=== PATIENT | male | born 1970 | race American Indian/Alaskan Native ===

== ENCOUNTER 2018-11-27 10:48 | Emergency (ER) | payer SELFPAY ==
[2018-11-27 11:08] VITALS: BP 140/79
--- NOTE | 2018-11-27 12:54 | Emergency Department Report ---
ED Lower Extremity HPI - General Chief Complaint: Extremity Injury, Lower Stated Complaint: LT FOOT INJURY Time Seen by Provider: 11/27/18 12:15 Source: patient Mode of arrival: Ambulatory Limitations: No Limitations - History of Present Illness Initial Comments: 48-year-old male presents to the emergency room complaining of left foot pain after twisting his ankle on 11/17/2018. Patient states he was cutting grass at home when he stepped into a hole and twisted his foot. Patient reports that he hears so place ice and elevated. Patient states pain when he starts to walk but improves with walking. Patient reports that he feels stiff. Patient denies any swelling able to walk. Patient does admit to a history of a fracture to his left foot as a child. Patient reports he has taken ibuprofen which has helped. Patient states that he needs a note to be cleared for work. Patient does not have a primary care provider. Patient has no other past medical history is not take any pain medications or chronic medications on a daily basis. He has an allergy to iodine. Onset/Timin -: days(s) Injury: Foot: Left (twisted from stepping into a hole) Type of Injury: inversion, eversion Place: home Severity: mild Improves With: NSAID, rest Treatments Prior to Arrival: NSAIDS - Related Data Allergies Allergy/AdvReac Type Severity Reaction Status Date / Time iodine Allergy Shortness Verified 11/27/18 10:51 of Breath ED Review of Systems ROS: Stated complaint: LT FOOT INJURY Other details as noted in HPI Comment: All other systems reviewed and negative ED Past Medical Hx - Past Medical History Previous Medical History?: No - Surgical History Past Surgical History?: No - Social History Smoking Status: Never Smoker Substance Use Type: Alcohol ED Physical Exam - General Limitations: No Limitations General appearance: alert, in no apparent distress - Head Head exam: Present: atraumatic, normocephalic - Eye Eye exam: Present: normal appearance - ENT ENT exam: Present: mucous membranes moist - Neck Neck exam: Present: normal inspection, full ROM - Expanded Lower Extremity Exam Left Hip exam: Present: normal inspection Upper Leg exam: Present: normal inspection Knee exam: Present: normal inspection Lower Leg exam: Present: normal inspection Ankle exam: Present: normal inspection Foot/Toe exam: Present: full ROM, tenderness (arch). Absent: swelling, abrasion, laceration, ecchymosis, deformity, crepidus, erythema, amputation, puncture wound Neuro vascular tendon exam: Present: no vascular compromise Gait: Positive: observed and normal - Back Exam Back exam: Present: normal inspection - Neurological Exam Neurological exam: Present: alert, oriented X3, normal gait - Psychiatric Psychiatric exam: Present: normal affect, normal mood - Skin Skin exam: Present: warm, dry, intact, normal color. Absent: rash ED Course Vital Signs 11/27/18 11:05 Temperature 97.8 F Pulse Rate 86 Respiratory 16 Rate Blood Pressure 140/79 O2 Sat by Pulse 96 Oximetry ED Lower Extremity MDM - Radiology Data Radiology results: report reviewed Patient: BIGG VALDES MR#: [id number] 03 : 1970 Acct:[id number] Age/Sex: 48 / M ADM Date: 11/27/18 Loc: ED Attending Dr: Ordering Physician: FRANCES BECKWITH Date of Service: 11/27/18 Procedure(s): XR foot 2V LT Accession Number(s): [id number] cc: FRANCES BECKWITH Fluoro Time In Minutes: LEFT FOOT 2 VIEW(S) INDICATION / CLINICAL INFORMATION: left foot pain COMPARISON: None available. FINDINGS: BONES / JOINT(S): No acute fracture or subluxation. No significant arthritis. SOFT TISSUES: No definite focal soft tissue swelling. ADDITIONAL FINDINGS: None. Signer Name: Ilya Solo MD Signed: 11/27/2018 1:02 PM Workstation Name: [id number] Transcribed By: DT Dictated By: Alex Solo MD Electronically Authenticated By: Alex Solo MD Signed Date/Time: 11/27/18 1302 DD/ 1301 TD/TT: - Medical Decision Making 48-year-old male presents to the emergency room complaining of left foot pain after twisting his ankle on 11/17/2018. Patient states he was cutting grass at home when he stepped into a hole and twisted his foot. Patient reports that he hears so place ice and elevated. Patient states pain when he starts to walk but improves with walking. Patient reports that he feels stiff. Patient denies any swelling able to walk. Patient does admit to a history of a fracture to his left foot as a child. Patient reports he has taken ibuprofen which has helped. Patient states that he needs a note to be cleared for work. Patient does not have a primary care provider. Patient has no other past medical history is not take any pain medications or chronic medications on a daily basis. He has an allergy to iodine. X-ray of left foot has been ordered. X-ray results shows no abnormalities. Critical care attestation.: If time is entered above; I have spent that time in minutes in the direct care of this critically ill patient, excluding procedure time. ED Disposition Clinical Impression: Injury of foot, left Qualifiers: Encounter type: initial encounter Qualified Code(s): S99.922A - Unspecified injury of left foot, initial encounter Disposition: TO HOME OR SELFCARE Is pt being admited?: No Does the pt Need Aspirin: No Condition: Stable Instructions: Foot Sprain (ED) Additional Instructions: Continue with [id number] ibuprofen or Tylenol as needed for pain. Follow- up with the primary care provider if his symptoms persist or gets worse. Referrals: CARON PEÑA MD [Primary Care Provider] - 3-5 Days Forms: Work/School Release Form(ED)
--- NOTE | 2018-11-27 13:06 | XRay Report ---
LEFT FOOT 2 VIEW(S) INDICATION / CLINICAL INFORMATION: left foot pain COMPARISON: None available. FINDINGS: BONES / JOINT(S): No acute fracture or subluxation. No significant arthritis. SOFT TISSUES: No definite focal soft tissue swelling. ADDITIONAL FINDINGS: None. Signer Name: Ilya Solo MD Signed: 11/27/2018 1:02 PM Workstation Name: [id number]
== END 2018-11-27 13:49 | disposition home or self-care (01) ==
LOC: ED 10:48
DX: S99.922A Unspecified injury of left foot, initial encounter (principal); X50.0XXA Overexertion from strenuous movement or load, initial encounter; Y93.89 Activity, other specified; Y92.89 Other specified places as the place of occurrence of the external cause; Y99.8 Other external cause status
CPT/HCPCS: 99283

== ENCOUNTER 2021-08-24 15:46 | Emergency (ER) | payer BC ==
[2021-08-24 18:51] VITALS: BP 130/81
[2021-08-24 19:54] LABS: Basophils % (Auto) 0.7 % (0.0-1.8); Eosinophils # (Auto) 0.2 K/mm3 (0.0-0.4); Eosinophils % (Auto) 3.1 % (0.0-4.3); Hematocrit 50.3 % (35.5-45.6); Hemoglobin 16.6 gm/dl (11.8-15.2); Lymphocytes # (Auto) 2.4 K/mm3 (1.2-5.4); Lymphocytes % (Auto) 47.5 % (13.4-35.0); Mean Corpuscular HGB Conc 33 % (32-34); Mean Corpuscular Volume 98 fl (84-94); Monocytes # (Auto) 0.4 K/mm3 (0.0-0.8); Monocytes % (Auto) 7.9 % (0.0-7.3); Platelet Count 211 K/mm3 (140-440); Red Blood Count 5.12 M/mm3 (3.65-5.03); Red Cell Distribution Width 12.9 % (13.2-15.2)
[2021-08-24 20:06] LABS: Alanine Aminotransferase 13 units/L (7-56); Albumin 4.8 g/dL (3.9-5); BUN/Creatinine Ratio 9; Blood Urea Nitrogen 7 mg/dL (9-20); Calcium 9.7 mg/dL (8.4-10.2); Hemolysis Index 6
[2021-08-24] MEDS ORDERED: MORPHINE 4 MG/1 ML INJ IV ONE (23:24)
[2021-08-24] MEDS ORDERED: ALUM-MAG HYDROXIDE-SIMETHICONE 200-200-20MG/5ML ORAL LIQD 30 ML PO ONE (23:24)
[2021-08-24] MEDS ORDERED: LIDOCAINE VISCOUS 2% 15 ML ORAL LIQD PO ONE (23:24)
[2021-08-24] MEDS ORDERED: FAMOTIDINE 20 MG/2 ML INJ IV ONE (23:24)
[2021-08-24] MEDS ORDERED: ONDANSETRON 4 MG/2 ML INJ IV ONE (23:24)
[2021-08-24] MEDS ORDERED: SODIUM CHLORIDE 0.9% 1000 ML 1,000 ML IV ONE (23:25)
[2021-08-24 23:46] LABS: Bilirubin,Urine NEG (Negative); Blood,Urine SM (Negative); Color,Urine Yellow (Yellow); Mucus,Urine 3+ /HPF; Protein,Urine <15 mg/dL mg/dL (Negative)
--- NOTE | 2021-08-25 02:28 | Emergency Department Report ---
ED Abdominal Pain HPI - General Chief Complaint: Abdominal Pain Stated Complaint: ABDOMINAL LORENA Source: patient Mode of arrival: Ambulatory Limitations: No Limitations - History of Present Illness Initial Comments: Patient is a 51-year-old -[place] male with no past medical history presents to the ED with complaint of acute onset persistent epigastric pain and nausea and vomiting for the last 1 week. Patient states that in the last 3 days he has not been able to keep anything down because of intractable nausea and vomiting despite taking medication that were previously prescribed for him including Carafate and Zofran 4 mg ODT sublingual tablets. Patient states that he has an appointment with a GI physician for endoscopy on September 13, 2021 but is unable to wait until that time because of his persistent pain. Patient also admits to having drank alcohol about a week ago at a green party and that that it was after the green party that the symptoms started flaring up. Patient denies dizziness, syncope, hematemesis, hemoptysis, hematochezia, diarrhea, chest pain or shortne ss of breath, fever, chills, cough, sore throat, headache, dysuria, urinary frequency and urgency and hematuria or traumatic injury. MD Complaint: abdominal pain, other (Nausea and vomiting) -: Sudden, week(s) (1) Location: epigastric Radiation: none Migration to: no migration Severity scale (0 -10): 8 Quality: aching, sharp Consistency: intermittent Improves With: nothing Worsens With: eating, vomiting - Related Data Previous Rx's Medication Instructions Recorded Last Taken Type Dicyclomine [Bentyl] 20 mg PO Q6H #30 tablet 08/25/21 Unknown Rx Famotidine [Pepcid] 20 mg PO BID #60 tablet 08/25/21 Unknown Rx Omeprazole 40 mg PO DAILY #60 cap 08/25/21 Unknown Rx Promethazine [Phenergan] 25 mg PO Q6HR PRN #30 tab 08/25/21 Unknown Rx Allergies Allergy/AdvReac Type Severity Reaction Status Date / Time iodine Allergy Shortness Verified 08/24/21 18:48 of Breath ED Review of Systems ROS: Stated complaint: ABDOMINAL LORENA Other details as noted in HPI Constitutional: denies: chills, fever Eyes: denies: eye pain, eye discharge, vision change ENT: denies: ear pain, throat pain Respiratory: denies: cough, shortness of breath, wheezing Cardiovascular: denies: chest pain, palpitations Endocrine: no symptoms reported Gastrointestinal: abdominal pain (Epigastric pain), nausea, vomiting. denies: diarrhea Genitourinary: denies: urgency, dysuria Musculoskeletal: denies: back pain, joint swelling, arthralgia Skin: denies: rash, lesions Neurological: denies: headache, weakness, paresthesias Psychiatric: denies: anxiety, depression Hematological/Lymphatic: denies: easy bleeding, easy bruising ED Past Medical Hx - Past Medical History Previous Medical History?: No - Surgical History Past Surgical History?: No - Social History Smoking Status: Never Smoker Substance Use Type: Alcohol - Medications Home Medications: Home Medications Medication Instructions Recorded Confirmed Last Taken Type Dicyclomine [Bentyl] 20 mg PO Q6H #30 tablet 08/25/21 Unknown Rx Famotidine [Pepcid] 20 mg PO BID #60 tablet 08/25/21 Unknown Rx Omeprazole 40 mg PO DAILY #60 cap 08/25/21 Unknown Rx Promethazine [Phenergan] 25 mg PO Q6HR PRN #30 tab 08/25/21 Unknown Rx ED Physical Exam - General Limitations: No Limitations General appearance: alert, in no apparent distress - Head Head exam: Present: atraumatic, normocephalic, normal inspection - Eye Eye exam: Present: normal appearance, PERRL, EOMI Pupils: Present: normal accommodation - ENT ENT exam: Present: normal exam, normal orophraynx, mucous membranes moist, TM's normal bilaterally, normal external ear exam - Neck Neck exam: Present: normal inspection, full ROM. Absent: tenderness - Respiratory Respiratory exam: Present: normal lung sounds bilaterally. Absent: respiratory distress, wheezes, rales, stridor, chest wall tenderness, accessory muscle use, decreased breath sounds, other - Cardiovascular Cardiovascular Exam: Present: regular rate, normal rhythm, normal heart sounds. Absent: systolic murmur, diastolic murmur, rubs, gallop - GI/Abdominal GI/Abdominal exam: Present: soft, tenderness (Palpable mild epigastric tenderness), normal bowel sounds. Absent: guarding, rebound, rigid, hyperactive bowel sounds, hypoactive bowel sounds - Extremities Exam Extremities exam: Present: normal inspection, full ROM, normal capillary refill. Absent: tenderness, pedal edema, joint swelling - Back Exam Back exam: Present: normal inspection, full ROM. Absent: tenderness, CVA tenderness (R), CVA tenderness (L), muscle spasm - Neurological Exam Neurological exam: Present: alert, oriented X3, CN II-XII intact, normal gait, reflexes normal - Psychiatric Psychiatric exam: Present: normal affect, normal mood - Skin Skin exam: Present: warm, dry, intact, normal color. Absent: rash ED Course Vital Signs 08/24/21 18:50 Pulse Rate 87 Respiratory 18 Rate Blood Pressure 130/81 [Left] O2 Sat by Pulse 100 Oximetry ED Medical Decision Making - Lab Data Result diagrams: 08/24/21 19:08 08/24/21 19:08 - Medical Decision Making This is a 51-year-old -[place] male with no past medical history presents to the ED with complaint of acute onset persistent epigastric pain and nausea and vomiting for the last 1 week. Patient states that in the last 3 days he has not been able to keep anything down because of intractable nausea and vomiting despite taking medication that were previously prescribed for him including Carafate and Zofran 4 mg ODT sublingual tablets. Patient states that he has an appointment with a GI physician for endoscopy on September 13, 2021 but is unable to wait until that time because of his persistent pain. Patient also admits to having drank alcohol about a week ago at a green party and that that it was after the green party that the symptoms started flaring up. In the ED, patient is alert and oriented x3 and is not in any distress. Patient was treated for nausea and vomiting with antiemetics, also given antacids and pain medications and also received normal saline 1 L IV bolus x1. Lab test results were reviewed and are all nonactionable except for mild hyponatremia 132 mmol/L and hypokalemia of 3.4 mmol/L. On reevaluation, patient's pain resolved and nausea and vomiting also resolved. Patient passed oral fluid challenge in the ED. Patient was discharged home on medications and advised to maintain a clear l iquid diet for 12 to 24 hours, take medication as needed for nausea and vomiting, antacids and antispasmodics. Patient was advised to return to the ED immediately if symptoms get worse. Patient was otherwise advised to follow-up with the GI physician for endoscopy as previously scheduled. - Differential Diagnosis GERD; gastritis; gastroenteritis; dehydration; Critical care attestation.: If time is entered above; I have spent that time in minutes in the direct care of this critically ill patient, excluding procedure time. ED Disposition Clinical Impression: Nausea and vomiting in adult patient, Acute epigastric pain GERD (gastroesophageal reflux disease) Qualifiers: Esophagitis presence: esophagitis presence not specified Qualified Code(s): K21.9 - Gastro-esophageal reflux disease without esophagitis Disposition: HOME / SELF CARE / HOMELESS Is pt being admited?: No Does the pt Need Aspirin: No Condition: Stable Instructions: Heartburn, [id number], Abdominal Pain, Adult, [id number], Nausea and Vomiting, Adult, [id number], Gastroesophageal Reflux Disease, Adult, [id number] Additional Instructions: All lab test results were reviewed and are all nonactionable. Based on your history and physical exam findings as well as lab test results, your symptoms are likely due to GERD complications. Therefore take medication as advised, drink plenty of fluids and ensure that you follow-up with a GI physician as previously scheduled for endoscopy. Return to the ED immediately if symptoms get worse Prescriptions: Dicyclomine [Bentyl] 20 mg PO Q6H #30 tablet Omeprazole 40 mg PO DAILY #60 cap Famotidine [Pepcid] 20 mg PO BID #60 tablet Promethazine [Phenergan] 25 mg PO Q6HR PRN #30 tab PRN Reason: Nausea Referrals: [facility] [Provider Group] - 3-5 Days Forms: Work/School Release Form(ED) Time of Disposition: 02:24 Print Language: MONTENEGRIN
== END 2021-08-25 02:40 | disposition home or self-care (01) ==
LOC: ED 15:46
DX: K21.9 Gastro-esophageal reflux disease without esophagitis (principal); R10.13 Epigastric pain; R11.2 Nausea with vomiting, unspecified; Z79.899 Other long term (current) drug therapy; Z91.09 Other allergy status, other than to drugs and biological substances
CPT/HCPCS: 36415; 80053; 81001; 83690; 85025; 96361; 96374; 96375; 99283; J2270; J2405; J3490; J7030